=== PATIENT | male | born 1975 | race Caucasian/White ===

== ENCOUNTER 2021-03-17 10:04 | Emergency (ER) | payer OTHER, MEDICAID ==
[~2021-03-17] VITALS: Ht 165.1 cm; Wt 68.0 kg
--- NOTE | 2021-03-17 10:06 | NUR ---
PT TAKEN TO ER BED 7, MD AND RN AT PT BEDSIDE FOR FURTHER EVALUATION.
[2021-03-17 10:10] VITALS: BP 153/88
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
--- NOTE | 2021-03-17 11:02 | NUR ---
PT TAKEN TO XR VIA [facility].
--- NOTE | 2021-03-17 11:20 | NUR ---
Patient returned from [facility] by [email or web address]. help desk technician advised pending XRAY of ribs once c-collar is cleared. Dr. Fairbanks made aware
--- NOTE | 2021-03-17 11:24 | NUR ---
Patient cleared from C-collar per ERMD; RAD contacted and advised pt ready
--- NOTE | 2021-03-17 11:31 | NUR ---
RAD at bedside
[2021-03-17] MEDS ORDERED: HYDROcodone/APAP 5/325 MG 1 TAB TAB PO ONE (11:35)
--- NOTE | 2021-03-17 11:35 | NUR ---
Patient requesting pain meds. Dr. Fairbanks made aware; orders to be placed.
--- NOTE | 2021-03-17 11:55 | NUR ---
Patient with relief to pain. 12/24. All pt needs met.
--- NOTE | 2021-03-17 12:05 | NUR ---
Patient disconnected from cardiac nurse; ambulated to restroom with steady/even gait.
--- NOTE | 2021-03-17 12:47 | NUR ---
Patient requested to contact family. Mobile phone provided; pt on phone speaking with family at this time
[2021-03-17] MEDS ORDERED: IBUP-2213 PO (12:48)
[2021-03-17 12:55] VITALS: BP 117/74
== END 2021-03-17 12:55 | disposition home or self-care (01) ==
LOC: MED 10:04
DX: S16.1XXA Strain of muscle, fascia and tendon at neck level, initial encounter (principal); S20.212A Contusion of left front wall of thorax, initial encounter; W22.8XXA Striking against or struck by other objects, initial encounter; Y93.89 Activity, other specified; Y92.89 Other specified places as the place of occurrence of the external cause; Y99.8 Other external cause status
CPT/HCPCS: 71101; 72040; 99284; Q0092